=== PATIENT | male | born 1950 | race Caucasian/White ===

== ENCOUNTER → 2020-01-04 | Outpatient (REF) | payer OTHER ==
[2020-01-04 15:16] LABS: APPEARANCE, URINE CLEAR (CLEAR); BACTERIA, URINE AUTO 1+ (NEGATIVE); BILIRUBIN, URINE AUTO NEGATIVE (NEGATIVE); BLOOD, URINE BLOOD 2+ (NEGATIVE); COLOR, URINE STRAW (YELLOW); GLUCOSE, URINE (UA) AUTO NEGATIVE (NEGATIVE); KETONE, URINE AUTO NEGATIVE (NEGATIVE); LEUKOCYTE ESTERASE, URINE AUTO NEGATIVE (NEGATIVE); NITRITE, URINE AUTO NEGATIVE (NEGATIVE); PROTEIN, URINE AUTO NEGATIVE (NEGATIVE); RBC, URINE AUTO 1 /HPF (0-3); SPECIFIC GRAVITY URINE AUTO 1.003 (1.002-1.035); SQUAMOUS EPITHELIAL CELL UR AU 0 /HPF (0-6); UROBILINOGEN, URINE AUTO 0.2 mg/dL (0.0-2.0); WBC, URINE AUTO 3 /HPF (0-3)
== END ==
LOC: M SMT 14:36
PROVIDERS: ATTEND Nurse Practitioner Family
DX: R31.0 Gross hematuria (principal)

== ENCOUNTER 2020-01-28 09:12 | Day surgery (SDC) | payer MEDICARE, BC, OTHER ==
[~2020-01-28] VITALS: Ht 175.3 cm; Wt 76.6 kg
[~2020-01-28 09:12] MED LIST: ACYC400T PO; ALEV220T22 PO; FINA5TAB2 PO; LOVA20TA2 PO; LR 1,000 ML IV SCH; ceFAZolin SOD 2 GM in IV 1 EA IV ONE
[2020-01-28] MEDS ORDERED: ROCURONIUM BROMIDE 50 MG/5 ML VIAL As Ordered ONE (09:56)
[2020-01-28] MEDS ORDERED: KETOROLAC 60MG 2ML VIAL As Ordered ONE (09:56)
[2020-01-28] MEDS ORDERED: METOCLOPRAMIDE INJ 10MG/2ML VIAL (J2765 PER 1) As Ordered ONE (09:56)
[2020-01-28] MEDS ORDERED: MIDAZOLAM INJ 2MG/2ML VIAL (J2250 PER 1MG) As Ordered ONE (09:56)
[2020-01-28] MEDS ORDERED: LIDOCAINE 2% 100MG/5ML SDV (FOR ANES.) As Ordered ONE (09:56)
[2020-01-28] MEDS ORDERED: ONDANSETRON 4MG/2ML VIAL As Ordered ONE (09:56)
[2020-01-28] MEDS ORDERED: propofoL 200 MG/20 ML VIAL As Ordered ONE (09:56)
[2020-01-28] MEDS ORDERED: fentaNYL 100 MCG/2 ML INJECTION (J3010) As Ordered ONE (09:57)
[2020-01-28] MEDS ORDERED: SUGAMMADEX SODIUM 500 MG/5 ML VIAL (BRIDION) As Ordered ONE (11:42)
[2020-01-28] MEDS ORDERED: oxyCODONE 5MG TAB PO PRN (12:15)
[2020-01-28] MEDS ORDERED: fentaNYL 100 MCG/2 ML INJECTION (J3010) IV PRN (12:15)
[2020-01-28] MEDS ORDERED: ONDANSETRON 4MG/2ML VIAL IV PRN (12:15)
[2020-01-28] MEDS ORDERED: ACETAMINOPHEN TAB 650MG DOSE (2X325MG) PO PRN (12:30)
[2020-01-28 13:00] VITALS: BP 146/75
--- NOTE | 2020-02-01 15:00 | RO ---
DATE OF PROCEDURE: 01/28/2020 PREPROCEDURE DIAGNOSIS: Bladder tumors. POSTPROCEDURE DIAGNOSIS: Bladder tumors. PROCEDURE: Cystoscopy. Transurethral resection of bladder tumors (greater than 5 cm), urethral meatal dilation, examination under anesthesia. SURGEON: DR. Shaquille Tobar. INSTRUCTOR TAP DANCING: None. ANESTHESIA: General. OPERATIVE INDICATIONS: This is a 69-year-old male who was found to have a large bladder tumor as well as several small satellite to the left bladder wall. He was brought to the operating room today for treatment. DESCRIPTION OF PROCEDURE: The patient left the operating room and general anesthesia was induced. Prophylactic antibiotics were infused. He was then placed in the dorsal lithotomy position and then a bimanual examination under anesthesia was performed. It was notable for an approximately 40-50 gram prostate with no nodules or induration. The bladder was freely mobile and there were no palpable masses. The patient was then prepped and draped in the usual sterile fashion. I tried to insert a resectoscope into the urethral meatus but it would not go in due to narrowing of the urethral meatus. I therefore dilated his urethral meatus to 30 M[place]gasque using curved metal sounds. I then advanced the resectoscope into the bladder and examined it thoroughly. The only abnormality seen was a very large tumor in the left wall as well as small satellite tumors. All of these tumors were then resected using a Loop. The bulk of the tumor was sent off as the bladder tumor. However, the stump at the base of the tumor as well as the small satellite tumor were sent off as resection and bladder tumor base. Once done, I removed all of the tumors using a Urovac evacuator. The base of resection was cauterized using a coagulation current. Once satisfied with hemostasis, then the left ureteral orifice continued to efflux clear urine. The resectoscope was then removed and then an 18-Monegasque Fraser catheter was inserted into the bladder. The balloon was filled with 10 mL of sterile water. Then the catheter was connected to gravity drainage. This marked the conclusion of the procedure. The patient was taken out of the dorsal lithotomy position awakened from anesthesia and transported to the recovery room in stable condition. ESTIMATED BLOOD LOSS: 5 mm. COMPLICATIONS: None. SPECIMENS: Bladder tumor, resection of bladder tumor base. PLAN: The patient will followup in the clinic next week for catheter removal and to discuss pathology results.
== END 2020-01-28 14:05 | disposition home or self-care (01) ==
LOC: M SDC 09:12
PROVIDERS: ATTEND Urology
DX: C67.9 Malignant neoplasm of bladder, unspecified (principal); K21.9 Gastro-esophageal reflux disease without esophagitis; Z79.899 Other long term (current) drug therapy
CPT/HCPCS: 52240; 88305; J0690; J1885; J2250; J2405; J2765; J3010

== ENCOUNTER → 2020-06-19 | Outpatient (REF) | payer MEDICARE, OTHER ==
[~2020-06-19] MED LIST changes: -LR 1,000 ML IV SCH; -ceFAZolin SOD 2 GM in IV 1 EA IV ONE
== END ==
LOC: M SMT 12:39
PROVIDERS: ATTEND Urology
DX: C67.9 Malignant neoplasm of bladder, unspecified (principal)

== ENCOUNTER → 2020-10-30 | Outpatient (REF) | payer MEDICARE, OTHER | LOC: M SMT 13:02 | PROVIDERS: ATTEND Urology | DX: C67.9 Malignant neoplasm of bladder, unspecified (principal) ==

== ENCOUNTER → 2021-01-22 | Outpatient (REF) | payer MEDICARE, OTHER ==
[~2021-01-22] MED LIST changes: +ACYC1TAB PO; -ACYC400T PO
== END ==
LOC: M SMT 17:22
PROVIDERS: ATTEND Urology
DX: C67.9 Malignant neoplasm of bladder, unspecified (principal)

== ENCOUNTER → 2021-05-14 | Outpatient (REF) | payer MEDICARE, OTHER | LOC: M SMT 19:22 | PROVIDERS: ATTEND Urology | DX: C67.9 Malignant neoplasm of bladder, unspecified (principal) ==

== ENCOUNTER → 2021-08-14 | Outpatient (REF) | payer MEDICARE, OTHER | LOC: M SMT 16:48 | PROVIDERS: ATTEND Urology | DX: C67.9 Malignant neoplasm of bladder, unspecified (principal) | CPT/HCPCS: 52000; 88108; G0463 ==

== ENCOUNTER → 2021-11-05 | Outpatient (REF) | payer MEDICARE, OTHER | LOC: M SMT 12:34 | PROVIDERS: ATTEND Urology | DX: C67.9 Malignant neoplasm of bladder, unspecified (principal) ==

== ENCOUNTER → 2022-02-11 | Outpatient (REF) | payer MEDICARE, OTHER | LOC: M SMT 12:58 | PROVIDERS: ATTEND Urology | DX: C67.9 Malignant neoplasm of bladder, unspecified (principal) ==

== ENCOUNTER → 2022-05-06 | Outpatient (REF) | payer MEDICARE, OTHER | LOC: M SMT 13:08 | PROVIDERS: ATTEND Urology | DX: C67.9 Malignant neoplasm of bladder, unspecified (principal) ==

== ENCOUNTER → 2022-07-29 | Outpatient (REF) | payer MEDICARE, OTHER | LOC: M SMT 13:07 | PROVIDERS: ATTEND Urology | DX: C67.9 Malignant neoplasm of bladder, unspecified (principal); R82.89 Other abnormal findings on cytological and histological examination of urine ==

== ENCOUNTER → 2023-01-27 | Outpatient (REF) | payer MEDICARE, OTHER | LOC: M SMT 17:31 | PROVIDERS: ATTEND Urology | DX: C67.9 Malignant neoplasm of bladder, unspecified (principal) ==

== ENCOUNTER → 2023-08-04 | Outpatient (REF) | payer MEDICARE, OTHER | LOC: M SMT 10:11 | PROVIDERS: ATTEND Urology | DX: C67.9 Malignant neoplasm of bladder, unspecified (principal) ==

== ENCOUNTER → 2024-02-09 | Outpatient (REF) | payer MEDICARE, OTHER | LOC: M SMT 16:57 | PROVIDERS: ATTEND Urology | DX: C67.9 Malignant neoplasm of bladder, unspecified (principal) ==

== ENCOUNTER → 2024-08-20 | Outpatient (REF) | payer MEDICARE, OTHER, BC | LOC: M SMT 17:27 | PROVIDERS: ATTEND Urology | DX: C67.9 Malignant neoplasm of bladder, unspecified (principal) ==

== ENCOUNTER → 2025-02-21 | Outpatient (REF) | payer MEDICARE, OTHER, BC ==
[~2025-02-21] MED LIST changes: +ACYC-438 PO; -ACYC1TAB PO
== END ==
LOC: M SMT 12:59
PROVIDERS: ATTEND Urology
DX: C67.9 Malignant neoplasm of bladder, unspecified (principal)